=== PATIENT | male | born 1945 | race Caucasian/White ===

== ENCOUNTER → 2023-09-10 14:40 | Outpatient (REF) | payer OTHER, SELFPAY | LOC: DHCBC HW 14:40 | PROVIDERS: ATTENDING PHYSICIAN Internal Medicine Cardiovascular Disease; FAMILY PHYSICIAN Family Medicine | DX: I25.10 Atherosclerotic heart disease of native coronary artery without angina pectoris (principal); I77.810 Thoracic aortic ectasia | CPT/HCPCS: 93306 ==

== ENCOUNTER → 2023-09-14 12:40 | Outpatient (REF) | payer OTHER, SELFPAY | LOC: DHCBC/DCA 12:40 | PROVIDERS: ATTENDING PHYSICIAN Internal Medicine; FAMILY PHYSICIAN Family Medicine | DX: I25.10 Atherosclerotic heart disease of native coronary artery without angina pectoris (principal); I10 Essential (primary) hypertension | CPT/HCPCS: 78452; 93017; A9500; J2785 ==

== ENCOUNTER → 2024-02-07 08:14 | Outpatient (REF) | payer OTHER, SELFPAY | LOC: HWRCS 08:14 | PROVIDERS: ATTENDING PHYSICIAN Nurse Practitioner; FAMILY PHYSICIAN Family Medicine | DX: I42.0 Dilated cardiomyopathy (principal); I25.10 Atherosclerotic heart disease of native coronary artery without angina pectoris; E78.00 Pure hypercholesterolemia, unspecified; R00.1 Bradycardia, unspecified | CPT/HCPCS: 93306 ==

== ENCOUNTER 2024-04-08 06:44 | Inpatient (IN) | payer OTHER, SELFPAY ==
[2024-04-07 15:23] VITALS: BP 187/89
[2024-04-07 15:32] LABS: Glucose - Point of Care 98 mg/dl (70-99)
--- NOTE | 2024-04-07 15:54 | ED.GENMED ---
History of Present Illness
General
Chief Complaint: Gait Dysfunction
Source: patient
Exam Limitations: none
Time Seen by Provider: 04/07/24 15:35
History of Present Illness
History of Present Illness:
78-year-old male presents from home where he lives by himself with difficulty walking since yesterday. He feels as though he has to drag his right leg behind him. He also feels that at times he does not lift it up high enough to clear the carpet.
He denies headache back pain numbness weakness otherwise. He denies fevers chest pain or shortness of breath. No abdominal pain. No injury.
Past History
Past History
ED Past Medical History: CAD, HTN, Hypercholesterolemia and Other (BPH)
ED Past Surgical History: Cholecystectomy
Social History
Tobacco: Non-smoker
Alcohol: None
Drug: None
Personal:
Living: with family
Employment: Retired
Family History
Family History: Other (Noncontributory)
Phy Exam
Physical Exam
Physical Exam:
General: Well-appearing male no acute respiratory distress
HEENT: Normocephalic atraumatic
Heart: Regular rate and rhythm no murmurs
Lungs: Clear no wheeze
Neurologic exam: Alert and oriented x 3 no facial asymmetry good strength to the upper and lower extremities. No drift on exam finger-nose [id number] intact. No signs of hemineglect
Extremities: No cyanosis
Skin is warm no rash
Course
Orders/Labs/Results
Orders:
Orders
04/07/24 15:33
EKG [Electrocardiogram (*1)] Urgent
Reason for Study: Fatigue / Weakness
EKG- Treatment ONCE
04/07/24 15:38
CBC/With Diff [Complete Blood Count/With Diff] Urgent
CMP [Comprehensive Metabolic Panel] Urgent
04/07/24 15:43
CT Head W/o Iv Contrast Urgent
Comment:
Reason For Exam: gait dysfunction
04/07/24 15:47
Urinalysis Reflex To Culture Urgent
Date Specimen was Collected: 04/07/24
Time Specimen was Collected: 15:46
Abnormal Lab Results
04/07/24 04/07/24
15:38 15:47
MPV 11.2 H fL
(7.4-10.4)
Absolute Monos (auto) 1.0 H 10^3/uL
(0.1-0.6)
Monocytes % 10.1 H %
(1.7-9.3)
BUN 23 H mg/dl
(9-20)
Creatinine 1.6 H mg/dL
(0.7-1.3)
Urine Glucose 3+ A
(Negative)
04/07/24 15:38
04/07/24 15:38
Vital Signs
Initial and Last Documented VS:
Initial Vital Signs
Temp Pulse Resp BP Pulse Ox
98.5 F 63 20 187/89 98
04/07/24 15:23 04/07/24 15:23 04/07/24 15:23 04/07/24 15:23 04/07/24 15:23
Last Documented Vital Signs
Temp Pulse Resp BP Pulse Ox
98.5 F 53 19 178/94 95
04/07/24 15:23 04/07/24 16:15 04/07/24 16:15 04/07/24 16:16 04/07/24 16:15
MDM/Problems Addressed
Differential Diagnosis Includes:
Difficulty with his gait starting yesterday. No objective finding on exam. Patient did ambulate to the bathroom in the room. He did not drag his leg. There is no evidence of foot drop. Will check for electrolyte abnormality anemia urinary tract
infection. CT of the head pending as well
*Critical Care Note
Total Time (30-74mins, 75-104mins- exclusive of procedures): Not Applicable
Update Note
Update Note:
CT negative. Labs reviewed without significant finding. Patient does describe significant gait dysfunction earlier today of which he was dragging his right leg behind him. There is no evidence today on exam of ataxia. Question possible TIA.
Discussed with emergency room attending. Will keep in hospital for further work up.
ED Attending Note
-
Portions of this chart may have been created with voice recognition software.� Occasional wrong word or��sound alike� substitutions may have occurred due to the inherent limitations of voice recognition software.
Discharge Plan
Departure
Patient Disposition: Admit
Date of Disposition: 04/07/24
Time of Disposition: 18:28
Admit to: Telemetry
Presentation/result/management discussed w/ accepting MD/DO: Hospitalist
Discharge Problem:
gait dysfunction
Prescriptions:
No Action
isosorbide mononitrate 30 MG tablet extended release 24 hr
30 mg PO HS
tamsulosin 0.4 MG capsule
0.4 mg PO HS
hydrochlorothiazide 25 MG tablet
25 mg PO DAILY
multivitamin [Daily Multiple] 1 EACH tablet
1 ea PO DAILY
cholecalciferol (vitamin D3) [Vitamin D3] 2,000 UNIT capsule
1,000 unit PO HS
pantoprazole 40 MG tablet,delayed release (DR/EC)
40 mg PO BID
losartan [Cozaar] 100 MG tablet
100 mg PO DAILY
aspirin 325 MG tablet,delayed release (DR/EC)
325 mg PO DAILY 0RF
docusate sodium 100 MG capsule
100 mg PO BID 0RF
clopidogrel 75 MG tablet
75 mg PO DAILY Qty: 0 0RF
Rx Instructions:
restart on 01/28
aspirin [Aspir-Low] 81 MG tablet,delayed release (DR/EC)
81 mg PO HS Qty: 0 0RF
Rx Instructions:
start on 01/28 and discontinue the aspirin 325
bupropion HCl [Wellbutrin SR] 150 MG tablet sustained-release 12 hr
150 mg PO HS
cyanocobalamin (vitamin B-12) 1,000 MCG tablet
1,000 mcg PO DAILY
rosuvastatin [Crestor] 40 MG tablet
40 mg PO HS
bupropion HCl 300 MG tablet extended release 24 hr
300 mg PO DAILY
metoprolol succinate 50 MG tablet extended release 24 hr
100 mg PO HS
Referrals:
Morelia Andrews DO [Family Provider] -
Interventions
Interventions:
*Risk Screen - Suicide Last Done: 04/07/24 15:23
*General Assessment Last Done: 04/07/24 15:23
*Neglect/Abuse Screening Last Done: 04/07/24 15:23
ED- Neurological Assessment Last Done: 04/07/24 15:40
ED-Musculoskeletal Assessment Last Done: 04/07/24 15:40
ED Swallowing Screen Last Done: 04/07/24 15:40
Discharge Date and Time
Print Language: THAI
[2024-04-07 15:55] LABS: % Basophils 0.6 % (0-2); % Eosinophils 4.7 % (0-6); % Immature Granulocytes 0.3 % (0-0.5); % Lymphocytes 26.5 % (20.5-51.1); % Monocytes 10.1 % (1.7-9.3); % Neutrophils 57.8 % (42.2-75.2); Absolute Basophils 0.1 10^3/uL (0-0.2); Absolute Eosinophils 0.5 10^3/uL (0-0.7); Absolute Lymphocytes 2.6 10^3/uL (1.2-3.4); Absolute Neutrophils 5.6 10^3/uL (1.4-6.5); Hematocrit 45.9 % (39.0-52.0); Hemoglobin 15.4 g/dL (13.0-18.0); Mean Corp Hgb Conc. 33.6 g/dL (33.0-37.0); Mean Corpuscular Hgb 30.6 pg (27.0-31.0); Mean Corpuscular Volume 91.1 fL (80.0-94.0); Mean Platelet Volume 11.2 fL (7.4-10.4); Nucleated Red Blood Cells % 0 % (-); Platelet Count 221 10^3/uL (130-400); Red Blood Cell Count 5.04 10^6/uL (4.70-6.10); Red Cell Dist. Width 12.9 % (11.5-14.5); White Blood Cell Count 9.6 10^3/uL (4.8-10.8)
[2024-04-07 15:56] LABS: Urine Albumin Negative (Neg - Trace); Urine Bilirubin Negative (Negative); Urine Character Clear (Clear); Urine Color Yellow; Urine Glucose 3+ (Negative); Urine Ketone Negative (Negative); Urine Leukocyte Negative (Negative); Urine Nitrite Negative (Negative); Urine Occult Blood Negative (Negative); Urine Specific Gravity 1.015 (<1.030); Urine Urobilinogen Negative (Neg - 1+)
[2024-04-07 16:12] LABS: ALT (SGPT) 21 U/L (0-50); AST (SGOT) 28 U/L (17-59); Albumin 4.6 g/dl (3.5-5.0); Alkaline Phosphatase 62 U/L (38-126); Blood Urea Nitrogen 23 mg/dl (9-20); Calcium 9.8 mg/dl (8.4-10.2); Carbon Dioxide 24 mmol/L (22-30); Chloride 105 mmol/L (98-107); Estimated Creatinine Clearance 40 ml/min; Glucose 93 mg/dl (70-99); Potassium 4.7 mmol/L (3.5-5.1); Sodium 144 mmol/L (135-145); Total Bilirubin 0.7 mg/dl (0.2-1.3); Total Protein 7.1 g/dl (6.3-8.2)
[2024-04-07 16:16] VITALS: BP 178/94
[2024-04-07 17:55] VITALS: BP 177/74
[2024-04-07 18:00] VITALS: BP 164/78
--- NOTE | 2024-04-07 18:53 | W.PN.UPDATE ---
Update Note
Progress Note Update
This note serves as an addendum to the H&P by jigger machine operator MATTIE Ruth DE LA FUENTE
HPI
78M Non smoker Home alone, HX CAD, HTN, HLD pw acute onset of difficulty walking since yesterday.
- report Rt leg is dragging behind him
- unable lift it up high enough to clear the carpet
- denies headache back pain numbness weakness otherwise.
- denies fevers chest pain or shortness of breath.
- No abdominal pain. No injury.
Reviewed VS: afebrile HR 53 RR 19 POx 95
PE
Gen: NAD, appropriate
HEENT: symmelic face , normal speech
Neck: supple
Lungs: CTA
Cor: RRR S1 S2
Abdomen: Soft benign
MOTOR VEHICLE TECHNICIAN:
Alert and oriented x 3 no facial asymmetry good strength to the upper and lower extremities.
No drift on exam finger-nose [id number] intact. No signs of hemineglect
MS: no edema
Psych: normal mood and normal affect
Data
nl CBC
Cr 1.6 - baseline 1.4 - 1.5
UA
EKG
NORMAL SINUS RHYTHM
NORMAL ECG
WHEN COMPARED WITH ECG OF 19-DEC-2017 10:47,
NO SIGNIFICANT CHANGE WAS FOUND
HCT
There are no acute intracranial abnormalities.
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
There is diffuse cortical atrophy with nonspecific white matter changes as described above.
12/14/17
LVEF 50-55%, by visual assessment. No regional wall motion abnormalities are seen. The diastolic filling pattern suggests mild abnormal relaxation.
Normal right ventricular size and function.
Mildly dilated left atrium.
Mild mitral regurgitation.
Trace aortic regurgitation.
No tricuspid regurgitation is seen. Right heart pressures could not be
determined.
Aortic root diameter measured 4.0 cm, ascending aorta measured 4.1 cm.
ASSESSMENT & PLAN
Acute Rt leg weakness - peripheral neuropathy vs acute CVA /TIA
NEG HCT for acute. 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
- cont PRECIPITATE WASHER ASA and Plavix
- Brain MRI
- Lipids. A1C
- ECHO
- Neuro consult
HLD
- cont Crestor
CAD HX
- stable
- cont DAPL
- cont. PRECIPITATE WASHER IMN
Essential HTN
- cont. HCTZ/ Losartan and Metoprol
BPH
- cont. Tamsulosin
DVT Px: SCD
Code: Full code
Obs TLM
--- NOTE | 2024-04-07 18:55 | HPS.HSE ---
Family Physician
-
Family Physician: Morelia Andrews
Chief Complaint
-
Right leg weakness, insomnia
History of Present Illness
78-year-old warts he lives alone and states that he had a very restless night last night although he did sleep 8 hours. He woke up lying across his bed with his head hanging off and his ankles hanging off. He does report to taking Tylenol PM prior
to sleep, which he does very often. He states when he got up he felt his right leg was weak but then went away. He denies any numbness, tingling. He denies headache, fever, chills, chest pain, palpitations, shortness breath, cough, abdominal
pain, nausea, vomiting, diarrhea, urinary symptoms. He has past medical history of cardiomyopathy, dilated aortic root/ascending aorta 4.2 cm, CAD cardiac stent x 3, CKD 3B, HTN, HLD, osteoarthritis, depression, GERD, obstructive sleep apnea,
prostate cancer status post prostatectomy 8 years ago.
Medical History
Past Medical History
Past Medical History: Reports Other
Additional Past Medical History:
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
cardiomyopathy
dilated aortic root/ascending aorta 4.2 cm
CAD cardiac stent x 3
CKD 3B
HTN
HLD
osteoarthritis
depression
GERD,
obstructive sleep apnea,
prostate cancer status post prostatectomy 8 years ago.
Past Surgical History: Reports Other
Additional Past Surgical History:
Cardiac stents x 3 in 2002, 2013 [place] prior at [facility]
Right knee replacement 2011
Right hip replacement 2011
Left rotator cuff repair 2014
Left knee meniscus repair 2004
Left total hip replacement 2016
Left thumb dog bite infected wound debridement 2015
[place] teeth extraction
Cholecystectomy
Robotic prostatectomy secondary to prostate cancer 8 years ago
Social History
Tobacco: Non-smoker
Alcohol: None
Drug: None
Personal: Single
Living: Alone
Employment: Retired
Family History
Family History: Other (Mother COPD, CAD 77, father history of CAD was in wheelchair unclear age 77, sister history of TIA sudden age 75 collapse in bathroom, 1 brother GSW to head suicide)
Allergies / Home Medications
Allergies reflects when Allergies were last updated in [email or web address].
Home Medications with original date entered in [email or web address]
Allergy/Medication List:
Allergies
Allergy/AdvReac Type Severity Reaction Status Date / Time
No Known Allergies Allergy Verified 01/24/17 09:20
Home Medications
losartan 100 mg tablet (Cozaar) 100 mg PO DAILY 12/08/16
pantoprazole 40 mg tablet,delayed release 40 mg PO BID 12/08/16
clopidogrel 75 mg tablet 75 mg PO DAILY ##0 01/25/17
bupropion HCl 150 mg tablet,12 hr sustained-release (Wellbutrin SR) 150 mg PO Q12H 12/24/17
cyanocobalamin (vitamin B-12) 1,000 mcg tablet 1,000 mcg PO DAILY 12/24/17
rosuvastatin 40 mg tablet (Crestor) 40 mg PO HS 12/24/17
aspirin 81 mg tablet,delayed release 81 mg PO HS 04/07/24
cholecalciferol (vitamin D3) 25 mcg (1,000 unit) tablet 25 mcg PO HS 04/07/24
empagliflozin 10 mg tablet (Jardiance) 10 mg PO HS 04/07/24
ezetimibe 10 mg tablet 10 mg PO DAILY 04/07/24
metoprolol succinate 100 mg tablet,extended release 24 hr 100 mg PO HS 04/07/24
therapeutic multivitamin 1 tab PO DAILY 04/07/24
Review of Systems
-
History Source: Patient
A 12 point ROS was completed and negative except as noted: Yes
Constitutional: Denies Fever, Fatigue or Chills
EENT: Denies Sore Throat or Runny Nose
Respiratory: Denies Cough or Trouble Breathing
Cardiac: Denies Chest Pain, Diaphoresis, Palpitations or Syncope
Abdomen/GI: Denies Abdominal Pain, Nausea, Vomiting, Diarrhea, Constipated, Bloody Stools or Black Stools
: Denies Dysuria, Frequency, Flank Pain, Incontinence, Difficulty Voiding or Urgency
Musculoskeletal: Denies Joint Pain or Edema
Skin: Denies Itching or Rash
Neurological: Denies Dizzy, Headache or Weakness
Endocrine: Reports No Symptoms
Hematologic/Lymphatic: Reports No Symptoms
Psych: Reports Calm
Physical Exam
Vital Signs
Vital Signs
Temp Pulse Resp BP Pulse Ox
98.5 F 53 19 178/94 95
04/07/24 15:23 04/07/24 16:15 04/07/24 16:15 04/07/24 16:16 04/07/24 16:15
Physical Exam
General: Conversant; No Pain or Fever
HEENT: NormoCephalic, Anicteric, Moist mucous membranes, PERRLA, [place] Conjunctivae and No Ptosis
Respiratory: Clear; No Wheezes, Rales or Rhonchi
Cardiac: S1/S2 and Regular Rhythm
Breast: Deferred by me
GI: Soft, Non Tender, Non Distended, Normal Bowel Sounds and No Hepatosplenomegaly
Rectal: Deferred by Provider
Genito-urinary: Deferred by me
Musculoskeletal: No Clubbing, No Cyanosis, No Edema and Other
Skin: Warm, Dry and Rash
Neuro: AO x 3, No Motor Deficits, Nonfocal/grossly intact, No Sensory Deficits and Other (Negative straight leg test, 5 out of 5 strength lower extremities sensation intact); No Slurred Speech, Facial Droop, Tremors or Sedated
Psych: Calm
Laboratory Results
-
04/07/24 15:38
04/07/24 15:38
Laboratory Results
Total Bilirubin 0.7 mg/dl (0.2-1.3) 04/07/24 15:38
AST 28 U/L (17-59) 04/07/24 15:38
ALT 21 U/L (0-50) 04/07/24 15:38
Alkaline Phosphatase 62 U/L (38-126) 04/07/24 15:38
Data Reviewed
-
Lab Data: Labs Reviewed by me
Impression/Plan
-
Impression/plan:
Observation MedSurg
#Right leg weakness concern for TIA/CVA
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
-Consult Neurology
-Check lipid profile, HgbA1c
-Continue aspirin 81 mg at bedtime, Plavix 75 mg daily, Zetia 10 mg daily, Crestor 40 mg at bedtime
-MRI brain
-PT/OT/case management consult
CT head:
No acute intracranial abnormality
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
Diffuse cortical atrophy with nonspecific white matter changes
#Cardiomyopathy hx
2D echo 02/07/2024: EF 45-50%. Mild inferior lateral hypokinesis. Mild AR. Dilated aortic root/ascending aorta up to 4.2 cm
-
Lexiscan stress test 09/14/2023: Negative ECG for ischemia. Fixed defects basal inferior, mid inferior, and apical inferior segments no evidence of ischemia. Systolic function moderately reduced ejection fraction 39%
EKG: NSR 60 bpm, QTc 408 MS no change from November 2017
#CKD 3B
Creat 1.6 appears baseline
-Follow BMP
#HTN�benign
BP 178/94
-Continue losartan 100 mg daily, metoprolol succinate 100 mg at bedtime
#HLD
-Check lipid profile
-Continue Zetia 10 mg daily, Crestor 40 mg at bedtime
#CAD
#Cardiac stent 2003 x 3
-Continue aspirin 81 mg daily, Plavix 75 mg daily, Zetia, Crestor 40 mg at bedtime
#Osteoarthritis
-Continue vitamin D3
#Depression
-Continue Wellbutrin 150 mg every 12 hours
#GERD
-Continue Protonix 40 mg twice daily
#Obstructive sleep apnea
-Patient reports wears a machine that sits below his nose and over his mouth but he is unsure type and unable to bring to hospital
We will monitor nighttime pulse ox
#Prostate cancer status post robotic prostatectomy
-Patient states has been stable has follow-up with urologist in [place]
#Insomnia
Patient takes Tylenol PM
DVT prophylaxis
SCDs
DNR per patient
--- NOTE | 2024-04-07 20:35 | PTCARENOTE ---
Received pt from ED via stretcher. Pt ambulated to bed independently. aao x3. Pt complained of cramping 3/10 pain in R toe, see MAR. NIH assessment performed. Assessed and oriented to room. Pt verbalized understanding of call olea. Call olea within
close reach. Will continue to monitor.
[2024-04-07 20:47] VITALS: BP 169/80; BMI 29.0
[2024-04-07] MEDS: TOPROL XL 100 MG PO (22:15)
[2024-04-07] MEDS: ASPIR LOW (ENTERIC COATED) 81 MG PO (22:15)
[2024-04-07] MEDS: CRESTOR 40 MG PO (22:16)
[2024-04-07] MEDS: FARXIGA 10 MG PO (22:16)
[2024-04-07] MEDS: VITAMIN D3 (cholecalciferol) 25 MCG PO (22:16)
[2024-04-07] MEDS: WELLBUTRIN SR (12 hour sustained release) 150 MG PO (22:16)
[2024-04-07] MEDS: PROTONIX 40 MG PO (22:17)
[2024-04-07] MEDS: TYLENOL 650 MG PO (22:17)
[2024-04-07 23:51] VITALS: BP 163/74
[2024-04-08 00:01] VITALS: BP 158/60
--- NOTE | 2024-04-08 02:55 | PTCARENOTE ---
Pt requested medication to help him sleep, ROLL WRAPPER made aware. No new orders provided.
[2024-04-08 03:21] VITALS: BP 152/68
[2024-04-08 06:51] LABS: Blood Urea Nitrogen 24 mg/dl (9-20); Calcium 9.8 mg/dl (8.4-10.2); Carbon Dioxide 25 mmol/L (22-30); Chloride 105 mmol/L (98-107); Estimated Creatinine Clearance 40 ml/min; Glucose 90 mg/dl (70-99); Potassium 4.8 mmol/L (3.5-5.1); Sodium 144 mmol/L (135-145); Total Cholesterol 121 mg/dl (50-199); Triglyceride 121 mg/dl (10-149); Very Low Density Lipoprotein 24 mg/dl (0-30)
[2024-04-08 06:56] LABS: % Basophils 0.9 % (0-2); % Eosinophils 5.8 % (0-6); % Immature Granulocytes 0.1 % (0-0.5); % Lymphocytes 32.6 % (20.5-51.1); % Monocytes 9.3 % (1.7-9.3); % Neutrophils 51.3 % (42.2-75.2); Absolute Basophils 0.1 10^3/uL (0-0.2); Absolute Eosinophils 0.4 10^3/uL (0-0.7); Absolute Lymphocytes 2.2 10^3/uL (1.2-3.4); Absolute Monocytes 0.6 10^3/uL (0.1-0.6); Absolute Neutrophils 3.5 10^3/uL (1.4-6.5); Hematocrit 44.9 % (39.0-52.0); Mean Corp Hgb Conc. 33.4 g/dL (33.0-37.0); Mean Corpuscular Hgb 29.8 pg (27.0-31.0); Mean Corpuscular Volume 89.1 fL (80.0-94.0); Mean Platelet Volume 11.1 fL (7.4-10.4); Nucleated Red Blood Cells % 0 % (-); Platelet Count 198 10^3/uL (130-400); Red Blood Cell Count 5.04 10^6/uL (4.70-6.10); Red Cell Dist. Width 12.8 % (11.5-14.5); White Blood Cell Count 6.8 10^3/uL (4.8-10.8)
[2024-04-08 07:19] LABS: HDL Cholesterol 44 mg/dl; LDL Cholesterol, Calculated 53 mg/dl
[2024-04-08 07:52] VITALS: BP 166/69
[2024-04-08 09:05] VITALS: BP 191/81; PULSE 55; O2SAT 94
[2024-04-08] MEDS: VITAMIN B-12 1000 MCG PO (09:06)
[2024-04-08] MEDS: ZETIA 10 MG PO (09:06)
[2024-04-08] MEDS: PROTONIX 40 MG PO ×2 (09:06→21:35)
[2024-04-08] MEDS: THERAGRAN 1 TABLET PO (09:07)
[2024-04-08] MEDS: PLAVIX 75 MG PO (09:07)
[2024-04-08] MEDS: COZAAR 100 MG PO (09:07)
[2024-04-08] MEDS: WELLBUTRIN SR (12 hour sustained release) 150 MG PO ×2 (09:08→21:34)
--- NOTE | 2024-04-08 09:23 | CON.NEURO4 ---
Consultation - Neurology 4
-
CONSULTING PHYSICIAN: Juan F Nicole MD (Neurology)
REFERRING PHYSICIAN: Hospitalist
DICTATED BY: Juan F Nicole MD
DATE/TIME OF REQUEST: 04/08/2024
DATE/TIME OF CONSULTATION: 04/08/2024
Reason for Consultation: Right leg weakness resolved
History of Present Illness:
This is a 78 year old right handed (male who has presented to the hospital with (chief complaint) of right leg weakness. He has a history of lacunar disease of the brain cardiomyopathy, dilated aortic root/ascending aorta (4.2 cm), CAD s/p
cardiac stent x 3, CKD 3B,HTN,HLD,osteoarthritis, depression, GERD,obstructive sleep apnea,prostate cancer status post prostatectomy who had been in usual state of health till Sunday morning. When he woke up he noted that he had difficulty moving
his right leg. Unable to stand and walk. He did not seek medical attention and waited till Sunday afternoon. He then came into the emergency room limping and had difficulty using his right leg. Following admission and bedrest his symptoms
resolved. At the time of my examination patient is awake alert oriented to person place and time. He has no motor or sensory deficits. He is able to stand and walk without restriction.
Past Medical History: Lacunar infarct right globus pallidus, cardiomyopathy, dilated aortic root/ascending aorta (4.2 cm) CAD cardiac stent x 3, CKD 3B, HTN, HLD, osteoarthritis, depression, GERD,obstructive sleep apnea,
prostate cancer status post prostatectomy 8 years ago
Surgical History: Cardiac stents x 3, Right knee replacement, Right hip replacement, Left rotator cuff repair, Left knee meniscus repair, Left total hip replacement, Left thumb dog bite infected [place] teeth extraction
Cholecystectomy, Robotic prostatectomy
Family History: Mother had COPD and CAD. Father CAD. Sister TIA. Brother suicide
Social History: Single lives alone does not smoke or use alcohol
Allergies: See addendum
Home Medications: See addendum
Review of Symptoms:
Patient denies any fever, headache, chest pain, shortness of breath, GI or symptoms.
�Per the HPI.�All systems are reviewed negative except above.
Vital Signs:
The patient has a Temp 36.6 C Pulse 52 Resp 14 BP 166/69 Pulse Ox 90
Physical Exam:
The patient is afebrile, heart sounds S1 and S2 are (regular , and chest is clear to auscultation bilaterally.
- If not clear, describe.
NIH Stroke Scale (if applicable):
I performed the NIH stroke scale on the patient . The patient scored ( 0 ) points on the NIH stroke scale
Neurologic Examination:
The patient is awake, alert and oriented x 3. (He is able to follow commands and answer questions appropriately. There is no aphasia or dysarthria. On cranial nerve assessment, pupils are 3 mm bilateral, round and reactive to light and
accommodation. Visual wu are full. Extraocular movements are intact. Facial sensations are intact and bilaterally symmetrical, there is no facial asymmetry. Hearing is intact bilaterally to normal conversation volume. Tongue palate and uvula
are midline. Sternocleidomastoid strengths are full bilaterally. Motor strengths are 5/5 bilateral upper and lower extremities on medical research [place] scale. There is no drift or involuntary movement noted. Deep tendon reflexes are + bilateral
upper and lower extremities and Babinski is absent bilaterally. Sensations of pain, touch, temperature and vibration are intact and bilaterally symmetrical. There was no extinction noted on double simultaneous stimulation. Coordination is intact by
finger to nose bilaterally. Romberg's negative gait within normal limits
Lab Results: Addendum
Neuro Imaging: MRI of the brain shows left internal capsular lacunar infarct. MRI lumbar spine shows moderate severe spinal stenosis at L2-L3 & L4-L5
Impression:
(Mr. EDGARDO CUADRA is a 78 year old M who has presented to the hospital with (symptoms/chief complaint) of new onset right leg weakness that has resolved.
Differentials for the patient's presentation include:
1. Left internal capsule lacunar infarct
2. Lumbar spinal stenosis with radiculopathy
Recommendations:
1. Aspirin 81
2. Plavix 75
3. PT/OT
4. Echocardiogram
5. Carotid ultrasound
6. PT/OT
7. Crestor 40
Patient may be discharged home once medically stable
Discussed patient care with:
Allergies
-
Allergies
Allergy/AdvReac Type Severity Reaction Status Date / Time
No Known Allergies Allergy Verified 01/24/17 09:20
Vital Signs and Labs
-
Vital Signs and Labs:
Vital Signs
Temp Pulse Resp BP Pulse Ox
36.6 C 52 14 166/69 90
04/08/24 07:52 04/08/24 07:52 04/08/24 07:52 04/08/24 07:52 04/08/24 07:52
Lab Results
04/08/24 06:08
04/08/24 06:08
Sodium 144 mmol/L (135-145) 04/08/24 06:08
Potassium 4.8 mmol/L (3.5-5.1) 04/08/24 06:08
BUN 24 mg/dl (9-20) H 04/08/24 06:08
Glucose 90 mg/dl (70-99) 04/08/24 06:08
Calcium 9.8 mg/dl (8.4-10.2) 04/08/24 06:08
LDL Cholesterol, Calc 53 mg/dl 04/08/24 06:08
Medications
-
Active Medications
Generic Name Dose Route Start Last Admin
Trade Name Freq PRN Reason Stop Dose Admin
Acetaminophen 650 mg 04/07/24 20:35 04/07/24 22:17
Acetaminophen 325 Mg Tablet PO 05/05/24 20:34 650 mg
Q4HPRN PRN Administration
mild pain/SHEETS/temp> 100.4F
Aspirin 81 mg 04/07/24 22:00 04/07/24 22:15
Aspirin 81 Mg (Enteric Coated) Tablet PO 05/05/24 21:59 81 mg
HS DAVEY Administration
Bupropion HCl 150 mg 04/07/24 20:35 04/08/24 09:08
Bupropion (12hr) Sustained Release 150 Mg Tablet PO 05/05/24 20:34 150 mg
Q12 DAVEY Administration
Cholecalciferol 25 mcg 04/07/24 22:00 04/07/24 22:16
Cholecalciferol (Vitamin D3) 25 Mcg Tablet (1,000 Units) PO 05/05/24 21:59 25 mcg
HS DAVEY Administration
Clopidogrel Bisulfate 75 mg 04/08/24 08:00 04/08/24 09:07
Clopidogrel 75 Mg Tablet PO 05/06/24 07:59 75 mg
DAILY DAVEY Administration
Cyanocobalamin 1,000 mcg 04/08/24 08:00 04/08/24 09:06
Cyanocobalamin 1,000 Mcg Tablet PO 05/06/24 07:59 1,000 mcg
DAILY DAVEY Administration
Dapagliflozin 10 mg 04/07/24 22:00 04/07/24 22:16
Dapagliflozin (Farxiga) 10 Mg Tablet PO 05/05/24 21:59 10 mg
HS DAVEY Administration
Ezetimibe 10 mg 04/08/24 08:00 04/08/24 09:06
Ezetimibe (Zetia) 10 Mg Tablet PO 05/06/24 07:59 10 mg
DAILY DAVEY Administration
Losartan Potassium 100 mg 04/08/24 08:00 04/08/24 09:07
Losartan 100 Mg Tablet PO 05/06/24 07:59 100 mg
DAILY DAVEY Administration
Metoprolol Succinate 100 mg 04/07/24 22:00 04/07/24 22:15
Metoprolol 100 Mg Extended Release Tablet PO 05/05/24 21:59 100 mg
HS DAVEY Administration
Multivitamins Therapeutic 1 tablet 04/08/24 08:00 04/08/24 09:07
Multivitamin Tablet PO 05/06/24 07:59 1 tablet
DAILY DAVEY Administration
Pantoprazole Sodium 40 mg 04/07/24 20:35 04/08/24 09:06
Pantoprazole 40 Mg Delayed Release Tablet PO 05/05/24 20:34 40 mg
BID DAVEY Administration
Rosuvastatin Calcium 40 mg 04/07/24 22:00 04/07/24 22:16
Rosuvastatin (Crestor) 40 Mg Tablet PO 05/05/24 21:59 40 mg
HS DAVEY Administration
Sodium Chloride 0 flush 04/07/24 21:00
Sodium Chloride 0.9% (Flush) Syringe IV 05/05/24 20:59
PER PROTOCOL DAVEY
Home Medications
�Medication �Instructions �Recorded
losartan 100 mg tablet (Cozaar) 100 mg PO DAILY 12/08/16
pantoprazole 40 mg tablet,delayed 40 mg PO BID 12/08/16
release
clopidogrel 75 mg tablet 75 mg PO DAILY ##0 01/25/17
bupropion HCl 150 mg tablet,12 hr 150 mg PO Q12H 12/24/17
sustained-release (Wellbutrin SR)
cyanocobalamin (vitamin B-12) 1,000 mcg PO DAILY 12/24/17
1,000 mcg tablet
rosuvastatin 40 mg tablet (Crestor) 40 mg PO HS 12/24/17
aspirin 81 mg tablet,delayed 81 mg PO HS 04/07/24
release
cholecalciferol (vitamin D3) 25 25 mcg PO HS 04/07/24
mcg (1,000 unit) tablet
empagliflozin 10 mg tablet 10 mg PO HS 04/07/24
(Jardiance)
ezetimibe 10 mg tablet 10 mg PO DAILY 04/07/24
metoprolol succinate 100 mg 100 mg PO HS 04/07/24
tablet,extended release 24 hr
therapeutic multivitamin 1 tab PO DAILY 04/07/24
--- NOTE | 2024-04-08 10:04 | PTOTSP ---
pt currently requires supervision to no assistance to complete simple ADLs, functional transfers, ambulation. pt does demonstrate decreased balance with ambulation, will defer to PT. no acute OT needs identified at this time, will sign off.
--- NOTE | 2024-04-08 11:04 | W.PN.HOSP.TC ---
Addendum entered and electronically signed by Alyce Hook MD 04/08/24 13:27:
Addendum
MRI was reviewed, positive for 2 strokes on the left side of the brain.
Reached out to his primary information consultant, will arrange long-term heart monitor
Will order echocardiogram and carotid ultrasound
Holding discharge
Discussed with case coordinator to set up home health services
End
Original Note:
Today's Communication/Plan
-
f/w MRI studies
f/w PT/Neurology/ OT recommendations
Assessment / Plan
Assessment / Plan
Physical Exam
General: Conversant; No Pain or Fever
HEENT: Normocephalic, Anicteric, Moist mucous membranes, PERRLA, [place] Conjunctivae and No Ptosis
Respiratory: Clear; No Wheezes, Rales or Rhonchi
Cardiac: S1/S2 and Regular Rhythm
GI: Soft, Non Tender, Non Distended, Normal Bowel Sounds and No Hepatosplenomegaly
Genito-urinary: No hematuria
Musculoskeletal: No Clubbing, No Cyanosis, No Edema and Other
Skin: Warm, Dry and Rash
Neuro: AO x 3, he followed commands, No Slurred Speech, Facial Droop, Tremors or Sedated
Psych: Calm
#Right leg weakness concern for TIA/CVA
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
-d/w Neurology, seems c/w radiculopathy
-Checked lipid profile, HgbA1c
-Continue aspirin 81 mg at bedtime, Plavix 75 mg daily, Zetia 10 mg daily, Crestor 40 mg at bedtime
-MRI brain, await results, for MRI lumbar spine
-PT/OT/case management consulted
CT head:
No acute intracranial abnormality
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
Diffuse cortical atrophy with nonspecific white matter changes
#Cardiomyopathy hx. Chronic HFrEF
No chest pain
No sob
2D echo 02/07/2024: EF 45-50%. Mild inferior lateral hypokinesis. Mild AR. Dilated aortic root/ascending aorta up to 4.2 cm
-
Lexiscan stress test 09/14/2023: Negative ECG for ischemia. Fixed defects basal inferior, mid inferior, and apical inferior segments no evidence of ischemia. Systolic function moderately reduced ejection fraction 39%
EKG: NSR 60 bpm, QTc 408 MS no change from November 2017
#CKD 3B
Creat 1.6 appears baseline
-Follow BMP
#HTN�benign
BP 178/94
-Continue losartan 100 mg daily, metoprolol succinate 100 mg at bedtime
#HLD
-Check lipid profile
-Continue Zetia 10 mg daily, Crestor 40 mg at bedtime
#CAD
#Cardiac stent 2003 x 3
-Continue aspirin 81 mg daily, Plavix 75 mg daily, Zetia, Crestor 40 mg at bedtime
#Osteoarthritis
-Continue vitamin D3
#Depression
-Continue Wellbutrin 150 mg every 12 hours
#GERD
-Continue Protonix 40 mg twice daily
#Obstructive sleep apnea
-Patient reports wears a machine that sits below his nose and over his mouth but he is unsure type and unable to bring to hospital
We will monitor nighttime pulse ox
#Prostate cancer status post robotic prostatectomy
-Patient states has been stable has follow-up with urologist in [place]
#Insomnia
Patient takes Tylenol PM
DVT prophylaxis
SCDs
Total time spent to see the patient, examine the patient on the floor, review data and lab results, discuss treatment plan with patient, neurologist, nursing staff around 55 minutes
Anticipated Discharge: Within 24 hours
Subjective/Interval History
-
Date of Service: April 08, 2024
No chest pain
No sob
No fevers
Objective Data
-
Labs:
Laboratory Results
04/08/24
06:08
WBC 6.8
Hgb 15.0
Hct 44.9
Plt Count 198
Sodium 144
Potassium 4.8
Chloride 105
Carbon Dioxide 25
BUN 24 H
Creatinine 1.6 H
Glucose 90
Calcium 9.8
Vital Signs:
Vital Signs
Temp Pulse Resp BP Pulse Ox
97.9 F 52 14 166/69 90
04/08/24 07:52 04/08/24 07:52 04/08/24 07:52 04/08/24 07:52 04/08/24 07:52
I&O
04/07/24 04/08/24 04/09/24
06:59 06:59 06:59
Intake Total 50 / 50 480 / 480
Balance 50 / 50 480 / 480
--- NOTE | 2024-04-08 15:35 | CM ---
Reviewed chart, met with patient to obtain information for assessment. Patient stated that he lives alone in a 55 and over community in a single home with three steps to enter, multiple floors but first floor set up. 3 steps to enter. Patient stated
that he does have a walker and a cane that he does not use but is there if he needs them. He is able to perform his ADLs, personal care, dressing and bathing. He can do drop tester, cook, clean, and do laundry. He does have someone who assists
with cleaning and can help with laundry if needed who he privately pays. Patient drives and can transport himself to all of his appointments and does all of his own shopping. He stated that he does have a cousin who is supportive and lives close.
Patient had VN services in the past after a hip replacement when he lived in [place].
He has never been to a SNF.
Patient has a prescription plan and he uses, [facility] in [place] for all of his medications.
Patient's PCP is, Morelia Andrews DO.
Patient made aware of consult that was received for him to have VN. He stated that his preference is .
Will send referral.
Plan: Case management will continue to follow and assist with discharge planning. Home with VN.
--- NOTE | 2024-04-08 16:15 | CARDSERVLU ---
Echocardiogram with Lumason completed after protocol screening completed. Allergies verified.
Patent IV site: ___rt hand__
IV site flushed with 0.9% NaCl pre and post administration.
Diluted bolus method utilized to enhance visualization of ventricular [place].
Total volume given: ___3.0_ mL
Patient tolerated all procedures well without complications.
# 22 placed Rt hand for Lumason.
[2024-04-08 16:39] VITALS: BP 172/71
[2024-04-08] MEDS: TYLENOL 650 MG PO (21:34)
[2024-04-08] MEDS: CRESTOR 40 MG PO (21:34)
[2024-04-08] MEDS: ASPIR LOW (ENTERIC COATED) 81 MG PO (21:34)
[2024-04-08] MEDS: FARXIGA 10 MG PO (21:35)
[2024-04-08] MEDS: VITAMIN D3 (cholecalciferol) 25 MCG PO (21:36)
[2024-04-08] MEDS: TOPROL XL 100 MG PO (21:39)
[2024-04-08 23:30] VITALS: BP 146/77
--- NOTE | 2024-04-09 04:00 | DOWNTIME ---
There was a [employer] Client Clinical Appeals Reviewer Downtime on 04/09/2024 from 0100 to 04/09/2024 at 0300. Downtime documentation of patient's care, including medication administrations, has been reconciled in the electronic record per guidelines. Refer to the
patient's paper chart under the miscellaneous tab to see printed paper medication records and downtime forms.
[2024-04-09 07:46] VITALS: BP 146/78
[2024-04-09] MEDS: ZETIA 10 MG PO (08:04)
[2024-04-09] MEDS: PROTONIX 40 MG PO (08:04)
[2024-04-09] MEDS: WELLBUTRIN SR (12 hour sustained release) 150 MG PO (08:05)
[2024-04-09] MEDS: VITAMIN B-12 1000 MCG PO (08:05)
[2024-04-09] MEDS: PLAVIX 75 MG PO (08:05)
[2024-04-09] MEDS: THERAGRAN 1 TABLET PO (08:05)
[2024-04-09] MEDS: COZAAR PO (08:08)
--- NOTE | 2024-04-09 09:48 | VNURNOTE ---
Home Health Liaison met with patient at bedside to discuss [facility] nurse/therapy, visits, schedule and homebound status. Patient is agreeable and understands that visits at home will be 2-3 x per week to assess and teach medical management.
[facility] brochure provided with contact information. Patient is aware that [facility] will contact them for start of care in 1-2 days after discharge from .
[facility] referral completed in [facility].
--- NOTE | 2024-04-09 10:23 | W.PN.HOSP.TC ---
Today's Communication/Plan
-
Discharge
Assessment / Plan
Assessment / Plan
Physical Exam
General: Conversant; No Pain or Fever
HEENT: Normocephalic, Anicteric, Moist mucous membranes, PERRLA, [place] Conjunctivae and No Ptosis
Respiratory: Clear; No Wheezes, Rales or Rhonchi
Cardiac: S1/S2 and Regular Rhythm
GI: Soft, Non Tender, Non Distended, Normal Bowel Sounds and No Hepatosplenomegaly
Genito-urinary: No hematuria
Musculoskeletal: No Clubbing, No Cyanosis, No Edema and Other
Skin: Warm, Dry and Rash
Neuro: AO x 3, he followed commands, No Slurred Speech, Facial Droop, Tremors or Sedated
Psych: Calm
#Acute left sided ischemic stroke, seems in left thalamus, eft internal capsule, 2 mm focus of abnormal restricted diffusion on the left frontal lobe.
Right leg weakness concern for TIA/CVA
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
-d/w Neurology, c/w aspirin and Plavix
-Checked lipid profile, HgbA1c
Carotid US no significant stenosis
Echo of heart good and improved LVEF
-Continue aspirin 81 mg at bedtime, Plavix 75 mg daily, Zetia 10 mg daily, Crestor 40 mg at bedtime
- for Heart monitor , d/w his dramatic director Dr Valdivia
-PT/OT/case management consulted
CT head:
No acute intracranial abnormality
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
Diffuse cortical atrophy with nonspecific white matter changes
#Cardiomyopathy hx. Chronic HFrEF ( improved)
No chest pain
No sob
Echo 04/08/24 showed Left ventricular ejection fraction is 55-60%. Normal regional wall motion.
2D echo 02/07/2024: EF 45-50%. Mild inferior lateral hypokinesis. Mild AR. Dilated aortic root/ascending aorta up to 4.2 cm
-
Lexiscan stress test 09/14/2023: Negative ECG for ischemia. Fixed defects basal inferior, mid inferior, and apical inferior segments no evidence of ischemia. Systolic function moderately reduced ejection fraction 39%
EKG: NSR 60 bpm, QTc 408 MS no change from November 2017
#CKD 3B
Creat 1.6 appears baseline
-Follow BMP
#HTN�benign
BP 178/94
-Continue losartan 100 mg daily, metoprolol succinate 100 mg at bedtime
#HLD
-Continue Zetia 10 mg daily, Crestor 40 mg at bedtime
#CAD
#Cardiac stent 2003 x 3
-Continue aspirin 81 mg daily, Plavix 75 mg daily, Zetia, Crestor 40 mg at bedtime
#Osteoarthritis
-Continue vitamin D3
#Depression
Pleasant mood
-Continue Wellbutrin 150 mg every 12 hours
#GERD
-Continue Protonix 40 mg twice daily
#Obstructive sleep apnea
-Patient reports wears a machine that sits below his nose and over his mouth but he is unsure type and unable to bring to hospital
We will monitor nighttime pulse ox
#Prostate cancer status post robotic prostatectomy
-Patient states has been stable has follow-up with urologist in [place]
#Insomnia
Patient takes Tylenol PM
DVT prophylaxis
SCDs
Total discharge time spent to see the patient, examine the patient on the floor, review data and lab results, discuss discharge treatment plan with patient, neurologist, nursing staff around 65 minutes
Anticipated Discharge: Today
Subjective/Interval History
-
Date of Service: April 09, 2024
Doing well, slept well
No worsening right leg weakness, it is getting better
no chest pain
no sob
Objective Data
-
Vital Signs:
Vital Signs
Temp Pulse Resp BP Pulse Ox
97.7 F 52 17 146/78 95
04/09/24 07:46 04/09/24 08:08 04/09/24 07:46 04/09/24 08:08 04/09/24 07:46
I&O
04/08/24 04/09/24 04/10/24
06:59 06:59 06:59
Intake Total 50 / 50 1440 / 1440
Balance 50 / 50 1440 / 1440
[2024-04-09 11:55] VITALS: BP 161/77; PULSE 62; O2SAT 97
--- NOTE | 2024-04-09 12:02 | W.DCSUMMARY ---
Discharge Summary
Discharge Data
Date of Admission: 04/08/24
Date of Discharge: 04/09/24
-
Pending Results: No
Hospital Course
78 years old male presented with right lower extremity weakness that happened few days ago. He denied speech or swallowing problems. No headache. No trauma. Imaging studies including MRI showed acute-subacute left-sided ischemic stroke(left
thalamus, left internal capsule, 2 mm focus of restricted diffusion on the left frontal lobe). Patient was evaluated by neurologist. He was taking dual antiplatelet therapy and recommendation to continue with treatment. Carotid ultrasound did not
show significant stenosis. Echocardiogram of the heart showed good and improved left ventricular ejection fraction. Lipid panel showed LDL around 53. Patient was maintained on his home dose of statin and Zetia. Patient remained hemodynamic
stable. He is scheduled to follow-up with his chief clinical officer for outpatient heart monitoring. Patient was evaluated by physical therapy recommended home care services. Patient was discharged in a stable condition.
Discharge Plan
-
Patient Disposition: Home with Home Care
Discharge Diagnosis/Procedures: lateral left thalamus, and probably extending to the adjacent posterior limb of the left internal capsule, there is a focal area of abnormal restricted diffusion compatible with acute to subacute infarction. In the
white matter of the left frontal lobe, 2 mm focus of abnormal restricted diffusion, which is also likely a small focus of acute to subacute infarction.
You were seen by neurologist. Continue on Aspirin & Plavix, follow with your chief clinical officer for heart monitor
You will need to see neurologist in one month.
Diet: Low Fat
Others Tests: An outpatient gambling monitor is being arranged by Dr. Awan's office. This will be mailed to your home.
Referrals:
Jonas Chavez MD [Active] - in one month
Morelia Andrews DO [Family Provider] -
Arun Awan MD [Active] - (2 weeks after completion of outpatient monitor)
Prescriptions:
Continued
pantoprazole 40 MG tablet,delayed release (/EC)
40 mg PO BID
losartan [Cozaar] 100 MG tablet
100 mg PO DAILY
clopidogrel 75 MG tablet
75 mg PO DAILY Qty: 0 0RF
Rx Instructions:
restart on 01/28
bupropion HCl [Wellbutrin SR] 150 MG tablet sustained-release 12 hr
150 mg PO Q12H
cyanocobalamin (vitamin B-12) 1,000 MCG tablet
1,000 mcg PO DAILY
rosuvastatin [Crestor] 40 MG tablet
40 mg PO HS
metoprolol succinate 100 mg tablet extended release 24 hr
100 mg PO HS
therapeutic multivitamin Tablet
1 tab PO DAILY
aspirin 81 mg Tablet,Delayed Release (Dr/Ec)
81 mg PO HS
ezetimibe 10 mg tablet
10 mg PO DAILY
cholecalciferol (vitamin D3) 25 mcg (1,000 unit) Tablet
25 mcg PO HS
Jardiance 10 mg tablet
10 mg PO HS
Patient Comments:
04/07/2024: Very expensive, will take until script is finished.
Discharge Orders:
Discharge Patient (As Directed); Ordered 04/09/24
Ordered By: Alyce Hook
Discharge Date and Time
Print Language: CHINESE
--- NOTE | 2024-04-09 12:07 | CM ---
Reviewed chart met with patient to discuss discharge. He is still agreeable to VN through . VN liason aware. Patient signed IMM and is now on chart. Patient confirmed that he has a ride home from family.
Plan: Case management will continue to follow and assist with discharge planning. Home with VN services.
[2024-04-09 12:40] VITALS: BP 172/83
== END 2024-04-09 13:28 | disposition home health service (06) | DRG 65 ==
LOC: 3 WEST ACU 06:44
PROVIDERS: Clinical Nurse Specialist Family Health; Physician Assistant; ADMITTING PHYSICIAN Internal Medicine; ATTENDING PHYSICIAN Internal Medicine; CONSULT PHYSICIAN Psychiatry & Neurology Neurology; EMERGENCY PHYSICIAN Emergency Medicine; FAMILY PHYSICIAN Family Medicine
DX: I63.81 Other cerebral infarction due to occlusion or stenosis of small artery (principal); I42.9 Cardiomyopathy, unspecified; F32.A Depression, unspecified; I12.9 Hypertensive chronic kidney disease with stage 1 through stage 4 chronic kidney disease, or unspecified chronic kidney disease; N18.32 Chronic kidney disease, stage 3b; I77.810 Thoracic aortic ectasia; G83.11 Monoplegia of lower limb affecting right dominant side; R29.700 NIHSS score 0; E78.00 Pure hypercholesterolemia, unspecified; G47.00 Insomnia, unspecified; G47.33 Obstructive sleep apnea (adult) (pediatric); I25.10 Atherosclerotic heart disease of native coronary artery without angina pectoris; Z95.5 Presence of coronary angioplasty implant and graft; K21.9 Gastro-esophageal reflux disease without esophagitis; M19.90 Unspecified osteoarthritis, unspecified site; M48.061 Spinal stenosis, lumbar region without neurogenic claudication; M54.16 Radiculopathy, lumbar region; N40.0 Benign prostatic hyperplasia without lower urinary tract symptoms; Z79.02 Long term (current) use of antithrombotics/antiplatelets; Z79.82 Long term (current) use of aspirin; Z79.899 Other long term (current) drug therapy; Z85.46 Personal history of malignant neoplasm of prostate; Z86.73 Personal history of transient ischemic attack (TIA), and cerebral infarction without residual deficits; Z90.79 Acquired absence of other genital organ(s); Z82.49 Family history of ischemic heart disease and other diseases of the circulatory system; Z96.643 Presence of artificial hip joint, bilateral; Z96.651 Presence of right artificial knee joint
CPT/HCPCS: 93308; 70450; 70551; 72148; 80048; 80053; 80061; 81003; 82962; 85025; 93005; 93321; 93325; 93880; 97116; 97163; 97166; 97530; 99285; Q9950

== ENCOUNTER 2024-10-31 07:37 | Day surgery (SDC) | payer OTHER, SELFPAY ==
[2024-10-28 13:05] VITALS: BMI 33.6
--- NOTE | 2024-10-31 14:50 | ITS.CL.IMPLP ---
Optical Goods Worker - Implant Loop
Implant Loop
Procedure Report:
Date of Procedure: October 31, 2024.
Procedure: Insertable Loop Recorder Implant.
Indication: Embolic stroke of unknown source.
Performing physician: Arun Awan MD, [facility].
Implant: Medtronic; Reveal LINQII; Model# [id number]; Serial# [id number].
Technique: The patient was prepped and draped in the usual fashion. A time-out was performed. No intravenous sedation was administered. Local anesthetic was applied to the left pre-pectoral subcutaneous tissue. Using the insertion kit an incision
was made left of the midline in the fourth intercostal space and the device was implanted subcutaneously and directed towards the nipple. Hemostasis was excellent. The skin was closed with steri-strips. The estimated blood loss was less than 1 ml.
There were no complications. No fluoroscopy. R waves measured 0.3 mV and P waves were visible.
Final Programming: Detections: Afib, tachy at 160 bpm, leopoldo at 30 bpm, pause at 3 sec.
Conclusion: Uncomplicated insertable loop implant.
Recommendation: Routine post-insertable loop care. The device is MRI conditional without a waiting period and up to 3 Michelle.
cc: Morelia Andrews DO and John Valdivia MD.
== END 2024-10-31 09:24 | disposition home or self-care (01) ==
LOC: CATH 07:37
PROVIDERS: ATTENDING PHYSICIAN Internal Medicine Cardiovascular Disease; FAMILY PHYSICIAN Family Medicine; OTHER PHYSICIAN Internal Medicine
DX: I47.19 Other supraventricular tachycardia (principal); Z86.73 Personal history of transient ischemic attack (TIA), and cerebral infarction without residual deficits; N18.32 Chronic kidney disease, stage 3b; I12.9 Hypertensive chronic kidney disease with stage 1 through stage 4 chronic kidney disease, or unspecified chronic kidney disease; E78.5 Hyperlipidemia, unspecified; I25.10 Atherosclerotic heart disease of native coronary artery without angina pectoris; I25.2 Old myocardial infarction; I25.5 Ischemic cardiomyopathy; G47.33 Obstructive sleep apnea (adult) (pediatric); K21.9 Gastro-esophageal reflux disease without esophagitis; Z86.0100 Personal history of colon polyps, unspecified; K76.0 Fatty (change of) liver, not elsewhere classified; Z87.442 Personal history of urinary calculi; Z87.898 Personal history of other specified conditions; G43.909 Migraine, unspecified, not intractable, without status migrainosus; M51.369 Other intervertebral disc degeneration, lumbar region without mention of lumbar back pain or lower extremity pain; M19.90 Unspecified osteoarthritis, unspecified site; H54.62 Unqualified visual loss, left eye, normal vision right eye; Z90.79 Acquired absence of other genital organ(s); Z85.46 Personal history of malignant neoplasm of prostate; F32.A Depression, unspecified; R73.03 Prediabetes; E66.9 Obesity, unspecified; Z68.33 Body mass index [BMI] 33.0-33.9, adult; Z79.82 Long term (current) use of aspirin; Z79.02 Long term (current) use of antithrombotics/antiplatelets; Z79.899 Other long term (current) drug therapy; Z96.643 Presence of artificial hip joint, bilateral; Z96.611 Presence of right artificial shoulder joint; Z90.49 Acquired absence of other specified parts of digestive tract; Z09 Encounter for follow-up examination after completed treatment for conditions other than malignant neoplasm
CPT/HCPCS: 33285; 93005; C1764